=== PATIENT | male | born 1995 | race Caucasian/White ===

== ENCOUNTER 2017-04-11 21:46 | Emergency (ER) | payer OTHER ==
[2017-04-11 21:47] VITALS: BP 124/71; PULSE 78; RESP 14; TEMP 98.7; O2SAT 99
[2017-04-11] MEDS ORDERED: DICL75TA PO (23:43)
[2017-04-11] MEDS ORDERED: CYCL10TA PO (23:43)
[2017-04-11] MEDS ORDERED: ACETAMINOPHEN/HYDROcodone 325 MG/5 MG TAB PO ONE (23:45)
[2017-04-11] MEDS ORDERED: CYCLOBENZAPRINE HCL 10 MG TAB PO ONE (23:45)
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
== END 2017-04-12 01:00 | disposition home or self-care (01) ==
LOC: NEPD 21:46
DX: M54.5 Low back pain (principal); M54.2 Cervicalgia; S20.211A Contusion of right front wall of thorax, initial encounter; V49.50XA Passenger injured in collision with unspecified motor vehicles in traffic accident, initial encounter; Y92.410 Unspecified street and highway as the place of occurrence of the external cause
CPT/HCPCS: 72040; 72100; 99284